=== PATIENT | male | born 1960 | race Two or more races ===

== ENCOUNTER → 2024-10-16 | Outpatient (CLI) | payer OTHER, MEDICAID, SELFPAY ==
--- NOTE | 2024-10-16 09:30 | XR_ITS ---
Examination: Esophagram standard Fluoroscopy 17 spot films of the esophagus Upright PA chest Upright soft tissue lateral neck Exam date and time: October 16, 2024 0902 hours INDICATIONS: Difficulty swallowing beginning 3 months ago TECHNIQUE AND FINDINGS: Upright PA chest normal heart size, lungs are clear Old fracture right sixth and seventh ribs Soft tissue lateral neck advanced degenerative disc disease C3-C4 and C6-C7 with mild cervical spondylosis Primary peristaltic esophageal waves No esophageal constricting lesion or intraluminal defect Mild intermittent gastroesophageal reflux No stricture the gastroesophageal junction IMPRESSION: Mild intermittent gastroesophageal reflux Fluoroscopy 0.06 minutes 17 spot fluoroscopic films
== END | disposition home or self-care (01) ==
PROVIDERS: PCP Family Medicine; Referring Provider Family Medicine; Visit Provider Family Medicine
DX: K21.9 Gastro-esophageal reflux disease without esophagitis (principal)
CPT/HCPCS: 74220